=== PATIENT | male | born 1975 ===

== ENCOUNTER 2017-04-05 13:24 | Emergency (ER) | payer OTHER ==
[~2017-04-05] VITALS: Ht 172.7 cm; Wt 68.0 kg
--- NOTE | 2017-04-05 13:50 | NUR ---
Dr angela at the bedside for MSE.
[2017-04-05] MEDS ORDERED: IV NORMAL SALINE 1000 ML BAG IV ONE (14:00)
[2017-04-05] MEDS ORDERED: PANTOPRAZOLE SODIUM 40 MG VIAL IV ONE (14:00)
[2017-04-05] MEDS ORDERED: PANTOPRAZOLE SODIUM 40 MG VIAL ONE (14:03)
[2017-04-05 14:16] LABS: BASOPHILS % (AUTO) 0.2 % (0.0-2.0); EOSINOPHILS % (AUTO) 0.1 % (0.0-7.0); HEMATOCRIT 49.5 % (36.7-47.1); HEMOGLOBIN 17.3 g/dL (12.5-16.3); LYMPHOCYTES # (AUTO) 0.8 K/uL (20.0-40.0); MEAN CORPUSCULAR HGB CONC 35 g/dL (32.5-36.3); MEAN CORPUSCULAR VOLUME 94.3 fL (73.0-96.2); MONOCYTES # (AUTO) 0.6 K/uL (2.0-10.0); MONOCYTES % (AUTO) 6.7 % (0.0-11.0); NEUTROPHILS # (AUTO) 8.1 K/uL (1.8-8.9); PLATELET COUNT (AUTO) 76 K/uL (152-348); RED BLOOD CELL COUNT(AUTO) 5.25 MIL/uL (4.06-5.63); WHITE BLOOD COUNT (AUTO) 9.6 K/uL (3.6-10.2)
[2017-04-05 14:25] LABS: CREATININE 0.9 mg/dL (0.6-1.3)
[2017-04-05 14:30] LABS: BILIRUBIN,TOTAL 1.2 mg/dL (0.2-1.0); TOTAL PROTEIN, SERUM 7.2 g/dL (6.4-8.2)
--- NOTE | 2017-04-05 17:18 | NUR ---
Pt is more awake requested fluids, no N/V.
--- NOTE | 2017-04-05 17:33 | NUR ---
Food and fluids provided, good appetite resting in bed now.
--- NOTE | 2017-04-05 18:21 | NUR ---
PT WAS D/C TO HOME AFTER DR MUNIZ RE-EVALUATION , ACCORDING TO HIS ORDER. GAIT IS STABLE. NO S/S OF DISTRESS AT THIS TIME. NO N/V. NO SOB. PT DENIES PAIN. D/C INSTRUCTIONS GIVEN TO THE PT. PT VERBALISED FULL UNDERSTANDING.
[2017-04-05 18:23] VITALS: BP 139/88
== END 2017-04-05 18:24 | disposition home or self-care (01) ==
LOC: ER 13:27
DX: F10.129 Alcohol abuse with intoxication, unspecified (principal)
CPT/HCPCS: 36415; 80053; 83690; 85025; 96361; 96374; 99284; A4663; C9113; G0480; J7030